=== PATIENT | male | born 1960 | race Caucasian/White ===

== ENCOUNTER 2016-07-29 12:12 | Day surgery (SDC) | payer OTHER ==
[~2016-07-29] VITALS: Ht 180.3 cm; Wt 83.9 kg
[~2016-07-29 12:12] MED LIST: CELEBREX100 MG PO; LORCET 5-325 M1 EACH PO; ULTRAM50 MG PO
== END 2016-07-29 13:45 | disposition home or self-care (01) ==
LOC: PAIN 12:12 → SDC 12:30 → PAIN 12:30
DX: M47.816 Spondylosis without myelopathy or radiculopathy, lumbar region (principal); M54.5 Low back pain; G89.29 Other chronic pain; M16.9 Osteoarthritis of hip, unspecified; M46.1 Sacroiliitis, not elsewhere classified; E11.9 Type 2 diabetes mellitus without complications; I10 Essential (primary) hypertension; J45.909 Unspecified asthma, uncomplicated; Z79.1 Long term (current) use of non-steroidal anti-inflammatories (NSAID); Z79.891 Long term (current) use of opiate analgesic
CPT/HCPCS: J1030; J2250; J3010; S0020

== ENCOUNTER 2016-08-05 12:05 | Day surgery (SDC) | payer OTHER ==
[~2016-08-05] VITALS: Ht 180.3 cm; Wt 83.9 kg
== END 2016-08-05 14:02 | disposition home or self-care (01) ==
LOC: PAIN 12:05 → SDC 12:30 → PAIN 14:02
DX: M47.816 Spondylosis without myelopathy or radiculopathy, lumbar region (principal); F41.9 Anxiety disorder, unspecified; M17.10 Unilateral primary osteoarthritis, unspecified knee; M12.88 Other specific arthropathies, not elsewhere classified, other specified site; I10 Essential (primary) hypertension; G89.29 Other chronic pain; M54.5 Low back pain; E11.9 Type 2 diabetes mellitus without complications; E78.5 Hyperlipidemia, unspecified
CPT/HCPCS: J1030; J2250; J3010; S0020

== ENCOUNTER 2016-09-10 08:56 | Inpatient (IN) | payer OTHER ==
[~2016-09-10] VITALS: Ht 180.3 cm; Wt 85.8 kg
[2016-09-10 10:01] LABS: BASOPHIL COUNT 0.1 K/uL (0-0.1); EOSINOPHIL (%) 2.7 % (0-5); EOSINOPHIL COUNT 0.2 K/uL (0-0.3); HEMATOCRIT 41.1 % (38.0-50.0); IMMATURE GRANULOCYTE (%) 3.2 % (0.0-0.7); IMMATURE GRANULOCYTE COUNT 0.3 K/uL; INSTRUMENT ABS NEUTROPHIL CT 4.6 K/uL; MCH 31.3 PG (29.0-34.0); MCHC 32.8 G/DL (30.0-36.0); MCV 95.1 FL (86-99); MEAN PLAT.VOLUME 9.1 uM^3 (9.0-12.4); MONOCYTE (%) 11.2 % (3-12); MONOCYTE COUNT 0.9 K/uL (0-0.8); NEUTROPHIL (%) 57.5 % (45-76); NEUTROPHIL COUNT 4.6 K/uL (1.8-6.4); RBC DIS.WIDTH-CV 12.4 % (11.8-14.6); RBC DIS.WIDTH-SD 43.3 % (39-53); RED BLOOD COUNT 4.32 M/uL (4.00-5.50); WHITE BLOOD COUNT 8.1 K/uL (4.1-10.2)
[2016-09-10 10:09] LABS: PLATELET COUNT 281 K/uL (156-360)
[2016-09-10 10:11] LABS: CHLORIDE 103 mEq/L (99-109); POTASSIUM 3.9 mEq/L (3.7-5.4); SODIUM 141 mEq/L (136-147)
[2016-09-10 10:12] LABS: GLUCOSE 116 mg/dL (70-99)
[2016-09-10 10:14] LABS: ANION GAP 11 MEQ/L (2-14)
[2016-09-10 10:16] LABS: GFR ESTIMATE (CALCULATED) > 59 mL/min/
[2016-09-10 10:17] LABS: UREA NITROGEN (BUN) 7 mg/dL (9-23)
[2016-09-10] MEDS ORDERED: TRAMADOL HCL50 MG PO (10:36)
[2016-09-10] MEDS ORDERED: AUGMENTIN875 MG PO (10:37)
[2016-09-10] MEDS ORDERED: MELOXICAM15 MG PO (10:38)
[2016-09-10] MEDS ORDERED: HYDROCODON-ACE1 EAC7 PO (10:38)
[2016-09-10] MEDS ORDERED: CELECOXIB100 MG PO (10:39)
[2016-09-10] MEDS ORDERED: TIZANIDINE HCL2 M1 PO (10:39)
[2016-09-10 10:44] LABS: ERTH.SED.RATE 69 MM/HR (0-20)
[2016-09-10 11:26] LABS: C-REACTIVE PROTEIN 49.4 MG/L (0-10)
[2016-09-10 13:21] VITALS: BP 187/93
[2016-09-10 16:33] VITALS: BP 185/102
[2016-09-10 19:22] VITALS: BP 167/85
[2016-09-10 21:01] VITALS: BP 172/88
[2016-09-11 00:40] VITALS: BP 146/75
[2016-09-11 03:38] VITALS: BP 155/94
[2016-09-11 06:59] LABS: HEMATOCRIT 41.2 % (38.0-50.0); MCH 30.8 PG (29.0-34.0); MCHC 32.8 G/DL (30.0-36.0); MCV 94.1 FL (86-99); MEAN PLAT.VOLUME 9.5 uM^3 (9.0-12.4); PLATELET COUNT 264 K/uL (156-360); RBC DIS.WIDTH-CV 12.3 % (11.8-14.6); RBC DIS.WIDTH-SD 42.7 % (39-53); RED BLOOD COUNT 4.38 M/uL (4.00-5.50); WHITE BLOOD COUNT 8.1 K/uL (4.1-10.2)
[2016-09-11 07:22] LABS: ANION GAP 10 MEQ/L (2-14); CHLORIDE 104 MEQ/L (99-109); GFR ESTIMATE (CALCULATED) > 59 mL/min/; GLUCOSE 117 mg/dL (70-99); POTASSIUM 4.1 MEQ/L (3.7-5.4); SAMPLE HEMOLYSIS CHECK 0; SAMPLE ICTERIC CHECK 0; SAMPLE LIPEMIA CHECK 0; SODIUM 142 MEQ/L (136-147); UREA NITROGEN (BUN) 6 mg/dL (9-23)
[2016-09-11 07:47] VITALS: BP 151/87
[2016-09-11 15:41] VITALS: BP 143/72
[2016-09-11 19:49] VITALS: BP 150/89
[2016-09-11 23:56] VITALS: BP 163/87
[2016-09-12 04:18] VITALS: BP 153/91
[2016-09-12 07:56] VITALS: BP 168/110
[2016-09-12 09:25] VITALS: BP 134/76
[2016-09-12 12:03] VITALS: BP 152/95
[2016-09-12] MEDS ORDERED: DICLOXACILLIN500 MG PO (13:45)
[2016-09-12] MEDS ORDERED: LISINOPRIL10 MG PO (13:45)
[2016-09-12 15:42] VITALS: BP 140/84
== END 2016-09-12 19:35 | disposition home or self-care (01) | DRG 549 ==
LOC: EME 08:56 → EDOF 10:52 → 3EAST 10:52
PROVIDERS: Emergency Medicine; Internal Medicine
PROC: 0M943ZZ Drainage of Left Elbow Bursa and Ligament, Percutaneous Approach (ICD-10-PCS; principal; 2016-09-11)
DX: M00.9 Pyogenic arthritis, unspecified (principal); M71.122 Other infective bursitis, left elbow; B95.61 Methicillin susceptible Staphylococcus aureus infection as the cause of diseases classified elsewhere; L03.114 Cellulitis of left upper limb; S52.022A Displaced fracture of olecranon process without intraarticular extension of left ulna, initial encounter for closed fracture; W19.XXXA Unspecified fall, initial encounter; I10 Essential (primary) hypertension; M19.90 Unspecified osteoarthritis, unspecified site; Z96.641 Presence of right artificial hip joint; Y92.009 Unspecified place in unspecified non-institutional (private) residence as the place of occurrence of the external cause
CPT/HCPCS: 73080; 73223; 80048; 80176; 80202; 83605; 85025; 85027; 85651; 86140; 87040; 87070; 87075; 87077; 87147; 87186; 87205; 99281; 99285; J0360; J0696; J2543; J3370; J7042; J7050; S0028

== ENCOUNTER 2016-10-03 13:53 | Day surgery (SDC) | payer OTHER ==
[~2016-10-03] VITALS: Ht 180.3 cm; Wt 85.8 kg
[~2016-10-03 13:53] MED LIST changes: +AUGMENTIN875 MG PO; +CELECOXIB100 MG PO; +DICLOXACILLIN500 MG PO; +DYNAPEN500 MG PO; +HYDROCODON-ACE1 EAC7 PO; +LISINOPRIL10 MG PO; +LORTAB 5-325 M1 EACH PO; +MELOXICAM15 MG PO; +PRINIVIL10 MG PO; +TIZANIDINE HCL2 M1 PO; +TRAMADOL HCL50 MG PO; +ZANAFLEX2 M1 PO
== END 2016-10-03 15:50 | disposition home or self-care (01) ==
LOC: PAIN 13:53 → SDC 14:15 → PAIN 15:50
DX: M47.816 Spondylosis without myelopathy or radiculopathy, lumbar region (principal); M54.5 Low back pain; G89.29 Other chronic pain; I10 Essential (primary) hypertension; M16.11 Unilateral primary osteoarthritis, right hip
CPT/HCPCS: J1030; J2250; J3010; S0020

== ENCOUNTER 2016-10-10 10:38 | Day surgery (SDC) | payer OTHER ==
[~2016-10-10] VITALS: Ht 180.3 cm; Wt 85.8 kg
== END 2016-10-10 11:58 | disposition home or self-care (01) ==
LOC: PAIN 10:38 → SDC 11:00 → PAIN 11:00
DX: M43.16 Spondylolisthesis, lumbar region (principal); M54.5 Low back pain; G89.29 Other chronic pain; I10 Essential (primary) hypertension; M46.1 Sacroiliitis, not elsewhere classified; E11.9 Type 2 diabetes mellitus without complications; M79.1 Myalgia; J45.909 Unspecified asthma, uncomplicated; M16.11 Unilateral primary osteoarthritis, right hip; Z79.891 Long term (current) use of opiate analgesic
CPT/HCPCS: J1030; J2250; J3010; S0020

== ENCOUNTER 2017-05-20 11:38 | Day surgery (SDC) | payer OTHER ==
[~2017-05-20] VITALS: Ht 180.3 cm; Wt 81.6 kg
[~2017-05-20 11:38] MED LIST changes: +ENDOCET 10-3251 EACH PO; +FLEXERIL10 MG PO; +MOBIC15 MG PO
== END 2017-05-20 13:55 | disposition home or self-care (01) ==
LOC: PAIN 11:38 → SDC 12:30 → PAIN 12:30
DX: M47.812 Spondylosis without myelopathy or radiculopathy, cervical region (principal); M47.816 Spondylosis without myelopathy or radiculopathy, lumbar region; M17.10 Unilateral primary osteoarthritis, unspecified knee; M16.10 Unilateral primary osteoarthritis, unspecified hip; I10 Essential (primary) hypertension; K21.9 Gastro-esophageal reflux disease without esophagitis; Z79.891 Long term (current) use of opiate analgesic
CPT/HCPCS: 93005; J1030; J2250; S0020

== ENCOUNTER 2017-05-27 11:38 | Day surgery (SDC) | payer OTHER ==
[~2017-05-27] VITALS: Ht 180.3 cm; Wt 81.7 kg
== END 2017-05-27 13:20 | disposition home or self-care (01) ==
LOC: PAIN 11:38 → SDC 12:30 → PAIN 13:20
DX: M47.812 Spondylosis without myelopathy or radiculopathy, cervical region (principal); M46.96 Unspecified inflammatory spondylopathy, lumbar region; M46.1 Sacroiliitis, not elsewhere classified; I10 Essential (primary) hypertension; G89.29 Other chronic pain; E11.9 Type 2 diabetes mellitus without complications; E78.5 Hyperlipidemia, unspecified
CPT/HCPCS: J1030; J2250; S0020